=== PATIENT | female | born 1965 | race Caucasian/White ===

== ENCOUNTER 2016-05-05 05:54 | Emergency (ER) | payer OTHER ==
[~2016-05-05] VITALS: Ht 157.5 cm; Wt 49.0 kg
--- NOTE | 2016-05-05 06:30 | ED GI/GU/ABDOMINAL COMPLAINT ---
History of Present Illness General Chief Complaint: Abdominal Pain/Flank Pain Stated Complaint: UPPER ABD PAIN Source: patient, family Exam Limitations: no limitations Vital Signs & Intake/Output Vital Signs & Intake/Output Vital Signs Date Time Temp Pulse Resp B/P Pulse O2 O2 Flow FiO2 Ox Delivery Rate 05/05 0812 98.6 85 18 125/84 98 Room Air 05/05 0603 98.3 68 18 125/78 98 Room Air Triage Note: PER PT SHE HAS HAD A VIRUS, STARTED TAKING IBUPROFEN FOR TWO DAYS FOR VIRUS AND STARTED HAVING STOMACH PAINS. PAIN IS SUBSTERNAL AND RADIATES TO BACK, PT STATES PAIN WHEN TAKING IBUPROFEN IS NORMAL FOR HER BUT DOES NOT RADIATE TO BACK. PAIN IS A BURNING PAIN, "TAKES MY BREATH AWAY", 07/28. Triage Nurses Notes Reviewed? yes ? N Is pt currently ? No HPI: Patient presents with a 2 day history of burning sensation in her epigastric area that radiates straight through to her back. The pain is constant. There is no aggravating or mitigating factors. The pain is 7 out of 10. Patient denies any shortness of breath. There is no nausea or vomiting. The pain started shortly after taking a total of 2 doses of 200 mg of ibuprofen which she took after coming down with an upper respiratory infection. After the pain started the patient switched over to Tylenol. The pain is continued since she comes in for evaluation. (ISABELLE PRUITT,ALBERTO Reese) Allergies Coded Allergies: Sulfa (Sulfonamide Antibiotics) (Intermediate, RASH 05/05/16) nitrofurantoin (From MACRODANTIN) (Intermediate, FLU SYMPTOMS 05/05/16) Reconcile Medications Pantoprazole Sodium (Protonix) 40 MG TABLET.DR 1 TAB PO DAILY GERD Sucralfate (Carafate) 1 GRAM TABLET 1 TAB PO 4 TIMES/DAY GERD (WILVER PRUITT,PHYLLIS) Past History Travel History Traveled to [place] past 21 day No Medical History Any Pertinent Medical History? 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 No (ISABELLE PRUITT,ALBERTO Reese) Review of Systems Review of Systems Constitutional: Reports: no symptoms. EENTM: Reports: no symptoms. Respiratory: Reports: no symptoms. Cardiovascular: Reports: no symptoms. GI: Reports: see HPI, abdominal pain. Genitourinary: Reports: no symptoms. Musculoskeletal: Reports: no symptoms. Skin: Reports: no symptoms. Neurological/Psychological: Reports: no symptoms. Hematologic/Endocrine: Reports: no symptoms. Immunologic/Allergic: Reports: no symptoms. All Other Systems: Reviewed and Negative (ISABELLE PRUITT,ALBERTO Reese) Physical Exam Physical Exam General Appearance: well developed/nourished, alert, awake, anxious, mild distress Head: atraumatic, normal appearance Eyes: Bilateral: PERRL, EOMI. Ears, Nose, Throat, Mouth: hearing grossly normal, moist mucous membrane Neck: normal inspection, supple, full range of motion, normal alignment Respiratory: normal breath sounds, chest non-tender, no respiratory distress, lungs clear Cardiovascular: regular rate/rhythm, normal peripheral pulses Gastrointestinal: normal bowel sounds, soft, non-tender, no organomegaly Back: normal inspection, normal range of motion Extremities: normal range of motion Neurologic/Psych: no motor/sensory deficits, awake, alert, oriented x 3, normal gait, normal mood/affect Skin: intact, normal color, warm/dry Core Measures ACS in differential dx? Yes ASA ordered for poss ACS? No-ACS ruled out Severe Sepsis Present: No Septic Shock Present: No (ISABELLE PRUITT,ALBERTO Reese) Progress Differential Diagnosis: AMI, biliary colic, cholecystitis, gastritis, hepatitis, pancreatitis Plan of Care: Orders Procedure Date/time Status Add-on Test (ER Only) 05/05 06 Active ACETOMINOPHEN 05/05 626 Complete TROPONIN LEVEL 05/05 626 Complete LIPASE 05/05 626 Complete COMPREHENSIVE METABOLIC PANEL 05/05 626 Complete CBC WITHOUT DIFFERENTIAL 05/05 626 Complete AMYLASE 05/05 626 Complete EKG 05/05 06 Active Laboratory Tests 05/05/16 0646: Anion Gap 8, Estimated GFR > 60, BUN/Creatinine Ratio 17.5, Glucose 94, Calcium 9.3, Total Bilirubin 0.6, AST 17, ALT 21, Alkaline Phosphatase 74, Troponin I < 0.01, Total Protein 7.0, Albumin 4.3, Globulin 2.7, Albumin/Globulin Ratio 1.6, Amylase 37, Lipase 57, CBC w Diff NO MAN DIFF REQ, RBC 4.56, MCV 90.1, MCH 30.5, RDW 12.3, MPV 7.8, Gran % 69.8, Lymphocytes % 14.1 L, Monocytes % 9.4 H, Eosinophils % 6.3 H, Basophils % 0.4, Absolute Granulocytes 6.2, Absolute Lymphocytes 1.3, Absolute Monocytes 0.8 H, Absolute Eosinophils 0.6, Absolute Basophils 0, PUBS MCHC 33.8, Acetaminophen < 10.0 L 8 AM Patient signed out to me by Dr. Walton. Labs WNL. Patient reports minimal relief with GI cocktail. She complains of dyspepsia for the last 2 days. I'll prescribe her Protonix and sucralfate and have her follow-up with GI outpatient. She is stable for discharge at this time. (PHYLLIS PETTIT MD) Initial ED EKG: NSR, no ST T wave changes Rhythm Strip: normal sinus rhythm Hand-Off Endorsed To: PHYLLIS PETTIT MD Endorsed Time: 0700 Pending: labs Comments: Slight improvement with GI cocktail. (ISABELLE PRUITT,ALBERTO Reese) Departure Departure Condition: Stable Clinical Impression Primary Impression: Gastritis Departure Forms: Customer Survey General Discharge Information (ALBERTO WALTON MD) Departure Time of Disposition: 0800 Disposition: HOME OR SELF CARE Referrals: YAYA Da Silva,JANY (PCP/Family) MASON PRUITT,MATEUSZ Lopez Additional Instructions: FOLLOW UP WITH YOUR DOCTOR AND THE GI DOCTOR LISTED. TAKE THE PROTONIX AND CARAFATE DIRECTED. RETURN TO THE ER FOR ANY CHANIGNG OR WORSENING SYMPTOMS. Prescriptions: Current Visit Scripts Pantoprazole Sodium (Protonix) 1 TAB PO DAILY #14 TAB Sucralfate (Carafate) 1 TAB PO 4 TIMES/DAY #120 TAB (PHYLLIS PETTIT MD) Sucralfate (Carafate) 1 TAB PO 4 TIMES/DAY #120 TAB (PHYLLIS PETTIT MD)
[2016-05-05 06:53] LABS: ABSOLUTE BASOPHIL COUNT 0 /CUMM (0.0-0.2); ABSOLUTE EOSINOPHIL COUNT 0.6 /CUMM (0.0-0.7); ABSOLUTE GRANULOCYTE CT 6.2 /CUMM (1.4-6.5); ABSOLUTE LYMPH COUNT 1.3 /CUMM (1.2-3.4); ABSOLUTE MONOCYTE COUNT 0.8 /CUMM (0.10-0.60); BASOPHIL % 0.4 % (0.0-2.0); EOSINOPHIL % 6.3 % (0-5); GRANULOCYTE % 69.8 % (42.2-75.2); HEMATOCRIT 41.1 % (37-47); MEAN CORPUSCULAR HGB 30.5 PG (27.0-31.0); MEAN CORPUSCULAR HGB CONC 33.8 G/DL (33.0-37.0); MEAN CORPUSCULAR VOLUME 90.1 FL (81.0-99.0); MEAN PLATELET VOLUME 7.8 FL (7.4-10.4); PLATELET COUNT 213 /CUMM (130-400); RBC DISTRIBUTION WIDTH 12.3 % (11.5-14.5); RED BLOOD CELL CT 4.56 /CUMM (4.20-5.40); WHITE BLOOD CELL COUNT 8.9 /CUMM (4.8-10.8)
[2016-05-05] MEDS ORDERED: CARAFATE1 G1 PO (08:01)
[2016-05-05] MEDS ORDERED: PROTONIX40 M3 PO (08:01)
[2016-05-05 08:12] VITALS: BP 125/84
== END 2016-05-05 08:13 ==
LOC: ERH 05:54
PROVIDERS: Emergency Medicine
DX: K29.70 Gastritis, unspecified, without bleeding (principal)
CPT/HCPCS: 93005; 93010; G0480